=== PATIENT | male | born 1955 | race Caucasian/White ===

== ENCOUNTER 2019-10-11 14:16 | Outpatient (CLI) | payer MEDICARE, SELFPAY ==
--- NOTE | 2019-10-11 14:23 | MR_ITS ---
WS: [id number] MRI LEFT KNEE NONCONTRAST TECHNIQUE: Axial PD, coronal PD fat sat, coronal PD, sagittal PD, and sagittal PD fat-sat images obta ined. CLINICAL INFORMATION: LEFT KNEE PAIN COMPARISON: None. FINDINGS: Normal ACL. Normal PCL. Distal quadriceps and patella tendons are intact. Moderate hypertrophic moreno la. Small amount of prepatellar and infrapatellar soft tissue edema. Mild diffuse thinning of the medial and lateral meniscus. Chronic intrasubstance signal abnormality. No acute appearing meniscal tears. Grade IV chondromalacia patella. Small amount of subchondral edema . Normal medial and lateral meniscus. Osteochondral defects involving the medial femoral condyle and medial tibial plateau. Largest osteochondral lesion in the medial femoral condyle measures 10.2 x 8.4 mm. Moderate chondromalacia involving the medial and lateral joint compartments worse involving the medial joint compartment. Mild diffuse soft tissue edema about the knee. MR/MR knee LT wo con* [id number] IMPRESSION: 1. Normal anterior and posterior cruciate ligaments. 2. Chronic thinning of the medial and lateral meniscus. No acute appearing men iscal tears. 3. Grade IV chondromalacia patella with subchondral edema. Hypertrophic patell a. 4. Moderate narrowing of the medial joint compartment with osteochondral defec ts the largest in the medial femoral condyle measuring 10.2 x 8.4 mm.
== END 2019-10-11 14:17 | disposition home or self-care (01) ==
LOC: RADWPI 14:22
PROVIDERS: Visit Provider Nurse Practitioner Family
DX: M25.562 Pain in left knee (principal); M22.42 Chondromalacia patellae, left knee; R60.0 Localized edema
CPT/HCPCS: 73721

== ENCOUNTER 2020-06-15 14:42 | Outpatient (CLI) | payer MEDICARE, SELFPAY ==
--- NOTE | 2020-06-15 14:54 | USCV_ITS ---
Cayden Aguirre Age: 64 Gender: M : 1955 Exam Date: 06/15/2020 14:50 Ordering Phys: Marlys Haskins LOBSTER CATCHER LOBSTER CATCHER Technologist: [place]am [place] [facility] [place] Indication: RIGHT LEFT Brachial 123.00 mmHg Brachial 135.00 mmHg Pressure (mmHg) Waveform Pressure (mmHg) Waveform 152.00 AUTOMOTIVE SALES SPECIALIST 148.00 141.00 DPA 174.00 1.13 Ankle/Brachial Index 1.29 136.00 Pre-Exercise Toe Pressure 137.00 1.01 Pre-Exercise Toe/Brachial Index 1.01 FINDINGS Normal resting ABIs bilaterally Normal resting TBIs bilaterally CONCLUSIONS No evidence of any significant arterial obstruction, based on the above findings. Dr Rom Johnson MD [facility] (Electronically Signed) Final Date: 16 June 2020 09:16 S
== END 2020-06-15 14:43 | disposition home or self-care (01) ==
PROVIDERS: Visit Provider Nurse Practitioner Family
DX: R20.0 Anesthesia of skin (principal); R20.2 Paresthesia of skin
CPT/HCPCS: 93922

== ENCOUNTER → 2021-04-09 08:45 | Outpatient (BNVA) | payer MEDICARE, SELFPAY | PROVIDERS: Visit Provider Family Medicine | DX: I10 Essential (primary) hypertension (principal); Z11.59 Encounter for screening for other viral diseases; Z12.5 Encounter for screening for malignant neoplasm of prostate; Z13.220 Encounter for screening for lipoid disorders; Z13.6 Encounter for screening for cardiovascular disorders | CPT/HCPCS: 80053; 80061; 83036; 84153; 84443; 85025; 86803 ==

== ENCOUNTER → 2022-06-11 11:08 | Outpatient (BNVA) | payer MEDICARE, SELFPAY | PROVIDERS: PCP Family Medicine; Visit Provider Family Medicine | DX: I10 Essential (primary) hypertension (principal); Z12.5 Encounter for screening for malignant neoplasm of prostate | CPT/HCPCS: 80053; 80061; 85025; G0103 ==

== ENCOUNTER 2023-06-25 14:32 | Outpatient (CLI) | payer MEDICARE, SELFPAY | END 2023-06-25 14:33 | disposition home or self-care (01) | LOC: RAD 11-06 10:28 | PROVIDERS: PCP Family Medicine; Visit Provider Family Medicine | DX: M43.12 Spondylolisthesis, cervical region (principal); M48.02 Spinal stenosis, cervical region; M25.78 Osteophyte, vertebrae; E55.9 Vitamin D deficiency, unspecified; I10 Essential (primary) hypertension; Z12.5 Encounter for screening for malignant neoplasm of prostate | CPT/HCPCS: 72040; 80053; 80061; 82306; 84443; G0103 ==

== ENCOUNTER 2023-09-25 08:21 | Outpatient (RCR) | payer MEDICARE, SELFPAY | END 2023-10-25 23:59 | disposition home or self-care (01) | LOC: SPT 08:21 | PROVIDERS: PCP Family Medicine; Visit Provider Family Medicine | DX: M54.2 Cervicalgia (principal) | CPT/HCPCS: 97161 ==

== ENCOUNTER → 2023-12-04 14:00 | Outpatient (BNVA) | payer MEDICARE, SELFPAY | PROVIDERS: PCP Family Medicine; Visit Provider Family Medicine | DX: E55.9 Vitamin D deficiency, unspecified (principal) | CPT/HCPCS: 82306 ==

== ENCOUNTER 2024-01-14 13:40 | Outpatient (CLI) | payer MEDICARE, SELFPAY ==
--- NOTE | 2024-01-14 14:00 | XR_ITS ---
WS: [id number] SCREENING DEXA SCAN eTobb CLINICAL INFORMATION: M81.0 - Age-related osteoporosis without current patholog... COMPARISON: None. FINDINGS: The L1-L4 bone mineral density measures 1.055 g/cm2. This corresponds to a T score score of -1.4 and Z score of -1.6. Left femoral neck bone mineral density measures 0.937 g/cm2. This corresponds to a T score of -1.1 an d Z score of -0.9. Right femoral neck bone mineral density measures 0.870 g/cm2. This corresponds to a T score -1.6of an d Z score of -1.4. Mean femoral neck bone mineral density measures 0.904 g/cm2. This corresponds to a T score of -1.4 an d Z score of -1.1. XR/XR DEXA axial skeleton* [id number] IMPRESSION: Osteopenia lumbar spine. Osteopenia femoral necks. Patient's FRAX calculated 10 year probability for major osteoporotic fracture i s 11.4% and osteoporotic hip fracture is 2.9%.
== END 2024-01-14 13:41 | disposition home or self-care (01) ==
PROVIDERS: PCP Family Medicine; Visit Provider Family Medicine
DX: Z13.820 Encounter for screening for osteoporosis (principal); M81.0 Age-related osteoporosis without current pathological fracture; Z82.62 Family history of osteoporosis; M85.80 Other specified disorders of bone density and structure, unspecified site
CPT/HCPCS: 77080

== ENCOUNTER → 2024-02-09 08:59 | Outpatient (BNVA) | payer MEDICARE, SELFPAY | PROVIDERS: PCP Family Medicine; Visit Provider Internal Medicine Cardiovascular Disease | DX: R07.9 Chest pain, unspecified (principal); I48.91 Unspecified atrial fibrillation; I10 Essential (primary) hypertension | CPT/HCPCS: 93005; 99204 ==

== ENCOUNTER 2024-03-10 09:20 | Outpatient (CLI) | payer MEDICARE, SELFPAY ==
[2024-03-10 09:22] VITALS: BMI 32.3
--- NOTE | 2024-03-10 09:22 | ECG_ITS ---
[facility] 2024[facility]10 Pat Name: Cayden Aguirre Department: Room: Gender: Male Training And Development Rep: : 1955 Requested By: Ragini Kim Order Number: [id number] Reading MD: RAGINI KIM Interpretive Statements Lung unchanged pre/post procedure; Intraprocedure shortess of breath; Symptoms resoled by discharge NOTE: Please note that this is the electrocardiogram portion of the Lexiscan/Sestamibi stress test. The perfusion scan will be documented separately. DATA: Baseline heart rate was 97 beats per minute. Baseline blood pressure was 145/109 millimeters of mercury. Target heart rate was 151. Maximum heart rate achieved was 160. which was 105 % of the predicted target heart rate. Maximum blood pressure was 161/109 millimeters of mercury. The reason for ending the test was maximum effort achieved. The patient did not experience any symptoms. ELECTROCARDIOGRAM: BASELINE: Atrial fibrillation. Normal axis. Otherwise, no ST-T changes suggestive of ischemia noted. No arrhythmia noted. EXERCISE: After Lexiscan injection, no ST-T changes suggestive of ischemic noted. No arrhythmia noted. CONCLUSION: Please note due to baseline abnormality of the EKG specificity and sensitivity of the EKG portion of LexiScan MIBI stress test will be low 1. EKG not suggestive of ischemia 2. Lexiscan injection unremarkable. 3. Perfusion scan will be documented separately. Electronically Signed On 03-29-2024 22:08:48 APRICOT PACKER by RAGINI KIM [email or web address]
--- NOTE | 2024-03-10 09:23 | NMCV_ITS ---
NM antolin perf SPECT r/s* [id number] Cayden Aguirre Age: 68 Gender: M : 1955 Exam Date: 03/10/2024 10:16 Ordering Phys: Ragini Kim MD ([email or web address]) Technologist: LUCY Deshpande Exam Location: [facility] Indications: cp STRESS TEST Please see separate stress test report in [facility] for full findings IMAGE PROTOCOL Rest/Stress 1 Lexiscan Day Radiopharmaceutical Dose (mCi) Administration Site Administered by Rest: Tc-99m 10.8 IV LEIDA DeshpandeMT Sestamibi Stress:Tc-99m 33 IV Josefa Barrett, FINANCIAL SPECIALIST Sestamibi Rest: 10-Mar-2024 60 Discovery 630 Stress: 10-Mar-2024 30 Discovery 630 0.4mg Lexiscan. Images obtained in supine and prone position. SPECT RESULTS Technical Quality: Good Raw Data Analysis: Normal Image Corrections: No attenuation or motion correction applied Summed Stress Score: 0 Summed Rest Score: 1 Summed Difference Score: 0 PERFUSION FINDINGS Basal to mid inferior inferolateral inferoseptal wall fixed defect suggestive of old myocardial infarction versus scarring. Medium sized area of fixed perfusion defect noted in mid anterior wall which could represent artifact versus old myocardial infarction FUNCTIONAL RESULTS (calculated via Gated SPECT) Stress Image LV EF (%): 47 Stress EDV (mL):106 TID: 0.96 Stress ESV (mL):56 FUNCTIONAL FINDINGS: Mildly reduced left ventricular ejection fraction however this study is not meant to determine left ventricle ejection fraction therefore specificity and sensitivity of the test will be of low probability IMPRESSIONS This study is negative for ischemia. Possible old myocardial infarction versus scarring noted in basal to mid inferior wall. Ragini Kim MD (Electronically Signed) Final Date: 11 March 2024 00:34 S
--- NOTE | 2024-03-10 09:59 | USCV_ITS ---
Cayden Aguirre Age: 68 Gender: M : 1955 Exam Date: 03/10/2024 10:03 Ordering Phys: Ragini Kim MD ([email or web address]) Technologist: [place] [facility] [place]: chest pain afib BP: 130 / 75 HR: 96 Rhythm: Sinus Technical Quality: Adequate MEASUREMENTS (Male / Female) Normal Values 2D ECHO LV Diastolic Diameter PLAX 4.2 cm 4.2 - 5.9 / 3.9 - 5.3 cm IVS Diastolic Thickness 1.4 cm 0.6 - 1.0 / 0.6 - 0.9 cm IVS Systolic Thickness 1.8 cm LVPW Diastolic Thickness 1.3 cm 0.6 - 1.0 / 0.6 - 0.9 cm LVPW Systolic Thickness 1.9 cm LVOT Diameter 2.6 cm LV Ejection Fraction 2D Teich 67.6 % LV Ejection Fraction MOD 4C 70.0 % LV Ejection Fraction MOD 2C 65.3 % LV Ejection Fraction 2C AL 64.2 % LA Diameter 4.4 cm RA Systolic Volume 4C AL 78.1 ml RA Systolic Volume 4C MOD 75.5 ml Aorta at Sinotubular Diameter 3.6 cm IVC Diameter 2.5 cm M-MODE LA Ao Ratio MM 1.0 AV Cusp Separation MM 2.7 cm DOPPLER AV Peak Velocity 95.0 cm/s LVOT Peak Velocity 67.0 cm/s AV Area Cont Eq vti 3.6 cm squared AV Area Cont Eq pk 3.7 cm squared MV Peak Velocity 82.0 cm/s MV Area PHT 4.3 cm squared Mitral E to A Ratio 1.5 TV Peak Velocity 215.0 cm/s TR Peak Velocity 281.0 cm/s TR Peak Gradient 31.6 mmHg TV Peak E Velocity 79.0 cm/s PV Peak Velocity 111.0 cm/s FINDINGS Left Ventricle Normal left ventricular size, systolic function and wall thickness, with no regional wall motion abnormalities. Left ventricular ejection fraction is estimated at 55 %. Grade I/IV diastolic dysfunction (abnormal relaxation filling pattern), normal to mildly elevated filling pressures. Right Ventricle The right ventricle is normal in size and function. Right Atrium Mildly increased right atrial size. Left Atrium Moderately increased left atrial size. Mitral Valve Moderately thickened mitral valve. Mild mitral annular calcification. No mitral valve stenosis. Mild mitral valve regurgitation. Aortic Valve Moderate aortic valve calcification. No aortic valve stenosis. Trace aortic valve regurgitation. Tricuspid Valve Structurally normal tricuspid valve without significant stenosis or regurgitation. Pulmonary artery systolic pressure is normal. Pulmonic Valve Structurally normal pulmonic valve without significant stenosis. There is no pulmonic regurgitation. Pericardium Normal pericardium without effusion. Aorta Normal ascending aorta dimension. IVC The inferior vena cava appears normal. CONCLUSIONS Normal left ventricular size, systolic function and wall thickness, with no regional wall motion abnormalities. Left ventricular ejection fraction is estimated at 55 %. Grade I/IV diastolic dysfunction (abnormal relaxation filling pattern), normal to mildly elevated filling pressures. Moderate aortic valve calcification. No aortic valve stenosis. Trace aortic valve regurgitation. Moderately thickened mitral valve. Mild mitral annular calcification. No mitral valve stenosis. Mild mitral valve regurgitation. There is no pericardial effusion. Right atrial pressure is around 5 mm of mercury. Ragini Kim MD (Electronically Signed) Final Date: 23 March 2024 03:33 S
[2024-03-10] MEDS: regadenoson 0.4 Mg/5 ml Syringe IVP (10:57)
[2024-03-10] MEDS: aminophylline 25 mg/mL SDV 20 mL IVP (11:05)
[2024-03-10 11:13] VITALS: BP 161/79; PULSE 113
== END 2024-03-10 09:21 | disposition home or self-care (01) ==
PROVIDERS: PCP Family Medicine; Visit Provider Internal Medicine Cardiovascular Disease
DX: R07.9 Chest pain, unspecified (principal); R93.1 Abnormal findings on diagnostic imaging of heart and coronary circulation; I51.7 Cardiomegaly; I34.81 Nonrheumatic mitral (valve) annulus calcification; I34.0 Nonrheumatic mitral (valve) insufficiency; I35.8 Other nonrheumatic aortic valve disorders
CPT/HCPCS: 36415; 78452; 93017; 93306; A9500; J0280; J2785

== ENCOUNTER → 2024-04-27 10:56 | Outpatient (BNVA) | payer MEDICARE, SELFPAY | PROVIDERS: PCP Family Medicine; Visit Provider Nurse Practitioner Family | DX: R07.9 Chest pain, unspecified (principal); I48.91 Unspecified atrial fibrillation; I10 Essential (primary) hypertension; I20.0 Unstable angina | CPT/HCPCS: 93005; 99214 ==

== ENCOUNTER 2024-05-12 14:37 | Outpatient (CLI) | payer MEDICARE, SELFPAY ==
[2024-05-12 16:02] LABS: Anion Gap 17.3 (5-19); Blood Urea Nitrogen 18 mg/dL (8-23); Carbon Dioxide 24 mmol/L (22-29); Chloride 103 mmol/L (98-107); Glomerular Filtration Rate 83.7 mL/min (90-130); Glucose 89 mg/dL (65-115); Osmolality Calculated 291 mOsm/kg (285-295); Potassium 4.3 mmol/L (3.5-5.1); Sodium 140 mmol/L (136-145)
== END 2024-05-12 14:38 | disposition home or self-care (01) ==
LOC: LAB 14:41
PROVIDERS: PCP Family Medicine; Visit Provider Nurse Practitioner Family
DX: E87.6 Hypokalemia (principal)
CPT/HCPCS: 36415; 80048

== ENCOUNTER 2024-05-18 08:49 | Outpatient (CLI) | payer MEDICARE, SELFPAY ==
[2024-05-18] VITALS (27 sets, daily range): BP systolic 112–173; BP diastolic 76–100; PULSE 66–108; RESP 15–25; TEMP 37.1; O2SAT 92–100; BMI 31.6
--- NOTE | 2024-05-18 09:00 | XACV_ITS ---
Exam Room: 2 Ht: 185 cm Wt: 109 kg BSA: 2.40 m2 Gender: Male : 1955 Any Known Allergies: No known allergies Exam Priority: Routine Procedure(s): Procedure Description: Diagnostic procedure Procedure Description: Left Heart Catheterization Procedure Description: Left ventriculography Procedure Description: Coronary Angiography Procedure Description: Pressure Wire Judy FLORES; Diagnostic Cath Status: Elective Diagnostic Findings * Left Main has no disease. * Circumflex has no disease. * Right Coronary Artery has no disease. * Mid Left Anterior Descending to Distal Left Anterior Descending: moderate 50% stenosis, BENITEZ: 3 flow. * Coronary angiography shows right dominance. Conclusions 1. There is moderate coronary artery disease with one vessel disease. 2. The apex, mid posterior, mid septum, anterolateral, mid inferior soria are hypokinetic. 3. All other visualized soria normal. 4. Normal left ventricular systolic function. Ejection fraction of 50%. Recommendations * Continue current medical management and risk factor modification. Diagnostic RX Recommendation: medical therapy and/or counseling Ventriculography Ejection Fraction: 50.0 % Pressures Phase:Rest AO : 86 / 58 ( 67 ) @ 12:57:00 PM 118 / 77 ( 99 ) @ 1:24:00 PM 114 / 82 ( 95 ) @ 1:24:00 PM LV : 129 / 46 / 41 @ 1:20:00 PM 130 / 43 / 31 @ 1:21:00 PM 134 / 3 / 18 @ 1:23:00 PM 128 / 1 / 16 @ 1:24:00 PM 133 / 2 / 18 @ 1:24:00 PM Valves Phase:DefaultPhase AV : 8.0 @ 12:31:13 PM AV Mean Gradient: 5.0 @ 12:31:13 PM Clinical Evaluation EBL: 5mL-10mL Procedural Details Procedure Consent Obtained. Current Diagnosis : Chest Pain. Pre-Procedure Time Out. Identified patient by full name and date of as verbalized by the patient/guarantor. Does the consent match the physician's order: Yes. Accurate & Complete Informed Consent: Yes. Inpatient/Outpatient History & Physical on Chart: Yes. If H&P is completed, is and addenduem needed: No; If yes, is the addendum complete: N/A. Visualize and Verify Site with Patient/Guarantor: N/A. Relevant Radiology Images available: Yes. Pre-op teaching completed and patient verbalized understanding. The risks, benefits, and alternatives of sedation and/or procedure were discussed by physician. The patient agrees to continue. Procedure started. [facility] Clinical Fraility Score: 3: Managing Well. Cash Applications Clerk Indications: Worsening Angina. Chest Pain Symptom Assessment: Atypical Angina. Current diagnosis: Chest Pain. PERRLA. Strong, equal hand marriage and family therapist bilaterally. Lungs clear x 5 lobes. IV Site on Arrival: 20 gauge in the left anticubital. IV Fluids: 0.9% NaCl at KVO. 0 mL infused prior to yard labor supervisor. Pre Procedural Pulses: bilateral dorsalis pedis was 3+. Pre Procedural Pulses: bilateral posterior tibial was 3+. Pre Procedural Pulses: bilateral radial was 3+. Oxygen started at 2liters/min via nasal canula. right groin was prepped with chloroprep then draped in the usual sterile fashion. right radial was prepped with chloroprep then draped in the usual sterile fashion. Baseline sample Acquired. HR: 78 BPM. Physician arrived. Physician scrubbed in. Immediate Pre-Procedure Time Out. Correct Patient: Yes; Correct Procedure: Yes; Correct Site: Yes; Correct Patient Position: Yes; Correct Supplies: Yes; Dried Flammable Prep: Yes; Blood Products Available: N/A;. Lidocaine 1% infiltrated to the right radial. Arterial access obtained. Wire unable to advance. Wire and needle out. Arterial access obtained. Wire unable to advance. Wire and needle out. Arterial access obtained. A 5 ivorian TIG catheter in over wire. Multiple views taken of left coronary artery. Catheter redirected to the RCA. Multiple views taken of right coronary artery. Catheter removed over the exchange wire. 6 ivorian XB 3.5 guide catheter was inserted over the wire. IFR guidewire was advanced through the guide catheter to lesion in the mid LAD. Wire removed to reshape the wire tip. IFR guidewire was advanced through the guide catheter to lesion in the mid LAD. IFR Result: 0.97. Wire out. Guide catheter out. A 5 ivorian Angled Pig catheter in over wire. EDP Sample taken: LV 129/46,41; HR: 82 BPM; SpO2: 97%. EDP Sample taken: LV 130/43,31; HR: 93 BPM; SpO2: 97%. ACT drawn. Results 278 seconds. Therapeutic limits - pre-heparin administration 90-150 seconds and monitoring heparin during a vascular procedure >250 seconds. EDP Sample taken: LV 134/3,18; HR: 80 BPM; SpO2: 97%. LV gram performed in CARO @ 10 mL/second for a total of 30 mL. EDP Sample taken: LV 128/1,16; HR: 77 BPM; SpO2: 98%. Pullback taken: LV 133/2,18; AO 118/77(99); Mean: 5mmHg, Peak to Peak: 8mmHg, SEP: 17sec/min; HR: 84 BPM; SpO2: 98%. Catheter removed over the exchange wire. Vital chart was stopped. A TR Band was successful obtaining hemostatsis at the Right Radial artery insertion site. Post Procedure: Pulses reassessed and unchanged. PERRLA. Strong, equal hand marriage and family therapist bilaterally. No VTE prophylaxis required. Medication's Wasted: Lidocaine 1% = 18 mL. Medication's Wasted: Nitro = 47.4 mcg. Medication's Wasted: Heparin = 1000 units. Total IV fluids: 100 mL. Complications: None. Estimated blood loss: 5mL-10mL. Responsiveness - Normal response to verbal stimuli; alert and oriented, PERRLA. Airway - Unaffected, no intervention required; spontaneous ventilation. Circulation: W/N/L, pulses unchanged. Nausea/Vomiting: No. Procedure completed. Patient transferred by wheelchair to 1st floor. Access Site Site: Right Radial artery Sheath Size: 6 Fr Hemostasis Method: TR Band Hemostasis Success: Successful Procedure Medications Start: 11:40 AM Stop: 11:40 AM Medication: Versed Amount: 1 mg Route: I.V. Start: 11:40 AM Stop: 11:40 AM Medication: Fentanyl Amount: 50 mcg Start: 11:46 AM Stop: 11:46 AM Medication: Versed 1 mg and Fentanyl 25 mcg Amount: 1 Route: I.V. Start: 11:50 AM Stop: 11:50 AM Medication: Nitrogylcerin Amount: 50 mcg Route: S.Q. Start: 11:54 AM Stop: 11:54 AM Medication: Nitrogylcerin Amount: 200 mcg Route: I.A. Start: 11:56 AM Stop: 11:56 AM Medication: Heparin Amount: 5000 units Route: I.V. Start: 11:57 AM Stop: 11:57 AM Medication: Fentanyl Amount: 25 mcg I, the attending physician, have reviewed and verified all procedure medications. Yes, all medications given per verbal order History/Risk Factors Hypertension: Yes Dyslipidemia: No Peripheral Arterial Disease (PAD): No Myocardial Infarction (VT): No Obesity: No Renal Disease: No Tobacco Use: Never Prior Interventions PCI: No CABG: No Valve Surgery: No Report Signatures Finalized by Ragini Kim MD on 05/30/2024 06:53 PM
[2024-05-18 09:21] LABS: Basophils # 0.1 10^3/uL (0.0-0.1); Eosinophils # 0.1 10^3/uL (0.0-0.8); Eosinophils % 2.1 %; Hematocrit 47.1 % (37-53); Lymphocytes # 1.7 10^3/uL (0.8-4.8); Lymphocytes % 28.6 %; Mean Corpuscular HGB Conc 33.3 g/dL (30-55); Mean Corpuscular Hemoglobin 31.6 pg (27-33); Mean Corpuscular Volume 94.8 fl (82-101); Mean Platelet Volume 10.3 fL (7.4-10.4); Monocytes # 0.7 10^3/uL (0.2-0.9); Monocytes % 11.6 %; Neutrophils # 3.26 10^3/uL (1.8-7.7); Neutrophils % 56.5 %; Nucleated Red Blood Cells % 0 %; Platelet Count 193 10^3/cmm (157-399); Red Blood Count 4.97 10^6/uL (3.85-5.65); Red Cell Distribution Width 12.7 % (12.1-15.1); White Blood Count 5.77 10^3/uL (3.29-11.43)
[2024-05-18] MEDS: diphenhydrAMINE 50 mg Capsule PO (09:30)
--- NOTE | 2024-05-18 11:35 | W.PM.OPSUD ---
Surgery/Procedure H&P Update DATE OF PROCEDURE: May 18, 2024 DATE H&P PERFORMED: 04/27/24 H&P UPDATE INFORMATION: I have reviewed H&P completed within last 30 days, I have examined patient prior to procedure and No changes to prior documentation PRIMARY INDICATION FOR PROCEDURE: 68-year-old male past medical history significant for hypertension hyperlipidemia strong family history of coronary artery disease atrial fibrillation continues to have chest pain which has increased in frequency and duration his stress test was negative despite of optimization of medicine his symptoms are getting worse to the point that it appeared to asked that he may have unstable angina. It is the reason patient has been brought in today for left heart cath. Patient has been explained all risk-benefit and alternative for the procedure he would like to proceed with it. PLANNED PROCEDURE: Operation Date: 05/18/24 10:00 Proposed Procedures p Cardiac Catheterization(Left) - Ragini Kim MD PATIENT REASSESSED PRIOR TO SEDATION, WITH NO CHANGE NOTED: Yes PHYSICAL EXAM: alert, oriented x 3, clear to auscultation bilaterally, regular rate & rhythm and operative site marked AIRWAY EVAL/ANESTHESIA PLAN: ASA II, Risks, benefits & alternatives of sedation and/or procedure discussed and Patient agrees to continue as planned ADDITIONAL INFORMATION: Patient understand 2% risk of stroke major bleed, patient 5 to 6% risk of major minor bleeding infection hematoma contrast induced nephropathy urgent emergent vascular bypass surgery. He would like to proceed with it.
--- NOTE | 2024-05-18 12:45 | SUR.EXTENDED ---
Received the patient back from the geophysical laboratory director via wheelchair s/p Diagnostic [facility]. Patient ambulated to the cot without difficulty. A & 0 x 3. wood mechanist placed and vital signs obtained. TR band X 2 intact to the right wrist. No bleeding or hematoma noted. Palpable radial pulse. No other assessment changes noted from pre cath assessment. Family at bedside. No concerns voiced at this time.
--- NOTE | 2024-05-18 13:32 | SUR.EXTENDED ---
Patient transferred via wheelchair to 103. Report was called to Galileo Boss RN at [id number].
--- NOTE | 2024-05-18 14:03 | PC.NURSE ---
received from cardiac quality assurance qa lab technician via w/c at 134.report received.pt is alert and awake and oriented x 4.denies pain at present.afib at controlled rate on monitor.right wrist tr band x 2..both on and inflated.right hand is warm to touch and with brisk capillary refill.no hematoma noted.palpable radial pulse noted distal to tr band.pt instructed in activity restrictions s/p radial artery procedure...and instructed to notify staff for any bleeding,pain,numbness,sob,or for any concerns at all.pt verb understanding of instructions
--- NOTE | 2024-05-18 18:53 | PC.NURSE ---
tr band slowly deflated and eventually removed at 1800.vss.a slight amt of soft swelling noted proximal to tr band.dr menchaca came and assessed pt.instructed to wrap with coban-with light firmness.discharge instructions given and explained.pt and spouse verb understanding of instructions.discharged via w/c to exit at 1845
== END 2024-05-18 18:45 | disposition home or self-care (01) ==
LOC: CCL 12:39 → CSU 12:57
PROVIDERS: PCP Family Medicine; Visit Provider Internal Medicine Cardiovascular Disease
DX: I25.10 Atherosclerotic heart disease of native coronary artery without angina pectoris (principal); I10 Essential (primary) hypertension; I48.91 Unspecified atrial fibrillation; Z79.01 Long term (current) use of anticoagulants; Z82.49 Family history of ischemic heart disease and other diseases of the circulatory system
CPT/HCPCS: 36415; 85025; 93458; 93571; 96374; 99152; 99153; C1769; C1887; C1894; J1644; J2250; J3010; J3490; J7030; J9999; Q0163; Q9967

== ENCOUNTER → 2024-05-28 08:36 | Outpatient (BNVA) | payer MEDICARE, SELFPAY | PROVIDERS: PCP Family Medicine; Visit Provider Family Medicine | DX: I25.10 Atherosclerotic heart disease of native coronary artery without angina pectoris (principal) | CPT/HCPCS: 80048; 85025 ==

== ENCOUNTER → 2024-06-01 15:34 | Outpatient (BNVA) | payer MEDICARE, SELFPAY | PROVIDERS: PCP Family Medicine; Visit Provider Nurse Practitioner Family | DX: I48.91 Unspecified atrial fibrillation (principal); I10 Essential (primary) hypertension; I25.10 Atherosclerotic heart disease of native coronary artery without angina pectoris; E78.5 Hyperlipidemia, unspecified | CPT/HCPCS: 99214 ==

== ENCOUNTER → 2024-08-25 15:27 | Outpatient (BNVA) | payer MEDICARE, SELFPAY | PROVIDERS: PCP Family Medicine; Visit Provider Internal Medicine Cardiovascular Disease | DX: I25.10 Atherosclerotic heart disease of native coronary artery without angina pectoris (principal); I48.91 Unspecified atrial fibrillation; I10 Essential (primary) hypertension; E78.5 Hyperlipidemia, unspecified; Z79.01 Long term (current) use of anticoagulants | CPT/HCPCS: 99214 ==

== ENCOUNTER → 2024-08-31 08:12 | Outpatient (BNVA) | payer MEDICARE, SELFPAY | PROVIDERS: PCP Family Medicine; Visit Provider Family Medicine | DX: Z00.00 Encounter for general adult medical examination without abnormal findings (principal); I10 Essential (primary) hypertension; I25.10 Atherosclerotic heart disease of native coronary artery without angina pectoris; R35.1 Nocturia | CPT/HCPCS: 80053; 80061; 84153; 85025 ==